=== PATIENT | female | born 1985 | race African-American/Black ===

== ENCOUNTER 2017-10-12 16:49 | Emergency (ER) | payer MEDICAID ==
[2017-10-12 16:54] VITALS: BP 116/80
[2017-10-12 18:15] LABS: BASOPHILS # (AUTO) 0.01 x10^3/uL (0-0.1); BASOPHILS % (AUTO) 0 % (0-1); EOSINOPHILS # (AUTO) 0.11 x10^3/uL (0-0.4); EOSINOPHILS % (AUTO) 1 % (1-7); LYMPHOCYTES # (AUTO) 1.88 x10^3/uL (1-3.4); LYMPHOCYTES % (AUTO) 23 % (22-44); MD NO; MEAN CORPUSCULAR HEMOGLOBIN 35.3 pg (27.0-34.8); MEAN CORPUSCULAR HGB CONC 34.7 g/dL (32.4-35.8); MEAN CORPUSCULAR VOLUME 101.8 fL (80-100); MEAN PLATELET VOLUME 8.1 fL (7.4-10.4); MONOCYTES # (AUTO) 0.45 x10^3/uL (0.2-0.8); MONOCYTES % (AUTO) 5 % (2-9); NEUTROPHILS # (AUTO) 5.92 x10^3/uL (1.8-6.8); NEUTROPHILS % (AUTO) 71 % (42-75); PLATELET COUNT 360 x10^3/uL (130-400); RED BLOOD COUNT 4.32 x10^6/uL (3.82-5.3); RED CELL DISTRIBUTION WIDTH 13.3 % (9.6-15.2)
[2017-10-12 18:16] LABS: CHLORIDE 106 mmol/L (98-107)
[2017-10-12 19:54] LABS: ALBUMIN 3.3 g/dL (3.4-5.0); CALCIUM 8.9 mg/dL (8.5-10.1); CREATININE 0.84 mg/dL (0.55-1.02)
[2017-10-12 19:56] LABS: ANION GAP 7 mmol/L (5-15)
== END 2017-10-12 18:45 | disposition left against medical advice (07) ==
LOC: ED 18:39
DX: R10.32 Left lower quadrant pain (principal)
CPT/HCPCS: 36415; 80048; 82040; 84703; 85025; 99284

== ENCOUNTER 2017-10-13 16:32 | Emergency (ER) | payer MEDICAID ==
[~2017-10-13] VITALS: Ht 160 cm; Wt 55.0 kg
[2017-10-13 17:40] LABS: MICROSCOPIC INDICATED
[2017-10-13 17:41] LABS: CULTURE INDICATED? YES
[2017-10-13 17:45] LABS: ALANINE AMINOTRANSFERASE 34 U/L (12-78); ALBUMIN 3.4 g/dL (3.4-5.0); ANION GAP 6 mmol/L (5-15); CHLORIDE 105 mmol/L (98-107); CREATININE 0.83 mg/dL (0.55-1.02)
[2017-10-13 17:50] LABS: ALKALINE PHOSPHATASE 95 U/L (45-117); BILIRUBIN,TOTAL 0.3 mg/dL (0.2-1.0); TOTAL PROTEIN 8.2 g/dL (6.4-8.2)
[2017-10-13 17:57] LABS: MEAN CORPUSCULAR HEMOGLOBIN 34.9 pg (27.0-34.8); MEAN CORPUSCULAR HGB CONC 34.3 g/dL (32.4-35.8); MEAN CORPUSCULAR VOLUME 101.7 fL (80-100); RED BLOOD COUNT 4.41 x10^6/uL (3.82-5.3); RED CELL DISTRIBUTION WIDTH 13.4 % (9.6-15.2)
[2017-10-13 18:19] LABS: MEAN PLATELET VOLUME 8.4 fL (7.4-10.4); PLATELET COUNT 440 x10^3/uL (130-400)
[2017-10-13 18:21] LABS: BASOPHILS # (AUTO) 0.04 x10^3/uL (0-0.1); BASOPHILS % (AUTO) 0 % (0-1); EOSINOPHILS # (AUTO) 0.08 x10^3/uL (0-0.4); EOSINOPHILS % (AUTO) 1 % (1-7); LYMPHOCYTES # (AUTO) 1.67 x10^3/uL (1-3.4); LYMPHOCYTES % (AUTO) 17 % (22-44); MD SCAN; MONOCYTES # (AUTO) 0.31 x10^3/uL (0.2-0.8); MONOCYTES % (AUTO) 3 % (2-9); NEUTROPHILS # (AUTO) 7.66 x10^3/uL (1.8-6.8); NEUTROPHILS % (AUTO) 79 % (42-75)
[2017-10-13] MEDS ORDERED: KETOROLAC 30 MG/1 ML ONE (18:36)
[2017-10-13 18:38] VITALS: BP 111/72
[2017-10-13] MEDS ORDERED: KETOROLAC 30 MG/1 ML IM ONE (19:00)
== END 2017-10-13 18:48 | disposition home or self-care (01) ==
LOC: ED 18:42
DX: N30.00 Acute cystitis without hematuria (principal); N83.8 Other noninflammatory disorders of ovary, fallopian tube and broad ligament; F17.200 Nicotine dependence, unspecified, uncomplicated
CPT/HCPCS: 36415; 74021; 80053; 81001; 84703; 85025; 87086; 96372; 99285; J1885